=== PATIENT | male | born 1985 ===

== ENCOUNTER 2017-02-18 19:36 | Emergency (ER) | payer MEDICAID, OTHER ==
[2017-02-18 19:55] VITALS: BP 136/85; PULSE 81; RESP 18; TEMP 98.5; O2SAT 100
--- NOTE | 2017-02-18 20:25 | ED PDOC ---
Lower Extremity Pain/Injury Time Seen by Provider: 02/18/17 19:57 Chief Complaint (Nursing): Lower Extremity Problem/Injury Chief Complaint (Provider): Lower extremity injury History Per: Patient History/Exam Limitations: no limitations Onset/Duration Of Symptoms: Hrs (x3 Prior to arrival) Current Symptoms Are (Timing): Still Present Additional Complaint(s): Ky Hugo is a 31 year old male, with no past medical history, who presents to the emergency department complaining of right ankle pain after twisting it falling down the stairs at work prior to arrival. Patient denies any numbness and tingling. No further medical complaints. PMD: None provided - Ankle/Foot Description Of Injury: Twisted Past Medical History Reviewed: Historical Data, Nursing Documentation, Vital Signs Vital Signs: Last Vital Signs Temp 98.5 F 02/18/17 19:52 Pulse 81 02/18/17 19:52 Resp 18 02/18/17 19:52 BP 136/85 02/18/17 19:52 Pulse Ox 100 02/18/17 19:52 - Medical History PMH: No Chronic Diseases - Family History Family History: States: Unknown Family Hx - Home Medications Home Medications: Ambulatory Orders Medication Instructions Recorded Ibuprofen [Motrin] 400 mg PO Q6 #30 tab 02/18/17 - Allergies Allergies/Adverse Reactions: Allergies Allergy/AdvReac Type Severity Reaction Status Date / Time No Known Allergies Allergy Verified 02/18/17 19:52 Review of Systems ROS Statement: Except As Marked, All Systems Reviewed And Found Negative Musculoskeletal: Positive for: Foot Pain (ankle pain and swelling ) Physical Exam - Reviewed Nursing Documentation Reviewed: Yes Vital Signs Reviewed: Yes - Physical Exam Appears: Positive for: Well, Non-toxic, No Acute Distress Head Exam: Positive for: ATRAUMATIC, NORMAL INSPECTION, NORMOCEPHALIC Skin: Positive for: Normal Color, Warm, Dry Eye Exam: Positive for: EOMI, Normal appearance, PERRL Cardiovascular/Chest: Positive for: Regular Rate, Rhythm Respiratory: Positive for: CNT, Normal Breath Sounds Gastrointestinal/Abdominal: Positive for: Normal Exam, Bowel Sounds, Soft Extremity: Positive for: Tenderness (RT ankle), Swelling (Right ankle), Other ( Good pulse) Neurologic/Psych: Positive for: Alert, Oriented - ECG O2 Sat by Pulse Oximetry: 100 (RA) Pulse Ox Interpretation: Normal Medical Decision Making Medical Decision Making: Initial Impression: Right ankle injury Initial Plan: --Ankle Right 3 views routine [RAD] --reevaluation xray: negative. aircast /crutches placed and f.u with podiatry. ORTHO RICE instructions. Scribe Attestation: Documented by Allan Wade, acting as a scribe for Sade BARRON. Provider Scribe Attestation: All medical record entries made by the Scribe were at my direction and personally dictated by me. I have reviewed the chart and agree that the record accurately reflects my personal performance of the history, physical exam, medical decision making, and the department course for this patient. I have also personally directed, reviewed, and agree with the discharge instructions and disposition. Disposition - Clinical Impression Clinical Impression: Ankle injury - Patient ED Disposition Is Patient to be Admitted: No Counseled Patient/Family Regarding: Studies Performed, Diagnosis, Need For Followup, Rx Given - Disposition Referrals: Podiatry Clinic [Outside] Disposition: Routine/Home Disposition Time: 20:45 Condition: STABLE Prescriptions: Ibuprofen [Motrin] 400 mg PO Q6 #30 tab Instructions: Ankle Sprain (ED) Forms: [facility] ED School/Work Excuse, [facility] ([place])
--- NOTE | 2017-02-19 12:08 | RAD ---
PROCEDURE: Right Ankle Radiographs. HISTORY: ankle Pain. No history of recent/ related trauma provided COMPARISON: None FINDINGS: BONES: Normal. No fracture. JOINTS: Normal. No osteoarthritis. Ankle mortise maintained. Talar dome intact SOFT TISSUES: Normal. OTHER FINDINGS: None. IMPRESSION: No significant or acute findings to account for/ related to the clinical presentation.
== END 2017-02-18 21:20 | disposition home or self-care (01) ==
LOC: H.ER 19:36
DX: S99.911A Unspecified injury of right ankle, initial encounter (principal); W10.9XXA Fall (on) (from) unspecified stairs and steps, initial encounter